=== PATIENT | female | born 1985 | race Caucasian/White ===

== ENCOUNTER 2023-10-18 15:19 | Emergency (ER) | payer OTHER, SELFPAY ==
--- NOTE | 2023-10-18 15:23 | ECG_ITS ---
Test Reason : CHEST PAIN Blood Pressure : / mmHG Vent. Rate : 115 BPM Atrial Rate : 115 BPM P-R Int : 136 ms QRS Dur : 080 ms QT Int : 328 ms P-R-T Axes : 048 070 011 degrees QTc Int : 453 ms Sinus tachycardia Cannot rule out Anterior infarct , age undetermined Abnormal ECG No previous ECGs available Referred By: Generic ED Physician Electronically Signed By:JOSE LUIS PERKINS MD
[2023-10-18 15:41] VITALS: BP 141/79; PULSE 111; RESP 20; TEMP 37.4; O2SAT 98; BMI 41.3
[2023-10-18 16:11] VITALS: BP 127/78; PULSE 108; RESP 16; TEMP 36.7; O2SAT 100
--- OUTSIDE RECORDS SUMMARY | 2023-10-18 16:12 | XMS_ITS | Continuity of Care Document ---
Author Organization [facility] ter Address [address] [place] [id number] Care Team Providers [employer] Manufacturing Technician Name Role Phone Yemi LÓPEZ, Thao Cast Primary Care Physician Unavail able Encounter [facility] Date(s): 06/13/21 - 06/13/[address] [id number] Attending Physician: Clint Díaz
--- NOTE | 2023-10-18 16:50 | ED.GENADULT ---
HPI - General Adult General Chief complaint: General Medical Stated complaint: tachy Time Seen by Provider: 10/18/23 16:02 Source: patient, RN notes reviewed and old records reviewed Mode of arrival: EMS Limitations: no limitations History of Present Illness HPI narrative: [age] year old female with past medical history significant for migraine headaches presents for evaluation of ?palpitations. ? 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 Patient reports that she has seen Cardiology about 15 years ago and again about last year and she has not had a formal diagnosis. Per her report it was felt that her symptoms are infrequent and did not warrant any intervention She had a Holter monitor in the past and an echocardiogram as recently as last year She states ?they keep telling me everything is normal. ? Patient states that during this episode today she had some chest discomfort and shortness of breath Patient reports that her mother and son both have similar symptoms occasionally Patient called the ambulance because her episode today lasted over an hour but when the ambulance arrived her symptoms have resolved. She denies any other significant medical history with the exception of migraines She has Mirena contraception No other complaints or concerns at this time Related Data Previous Rx's ?Medication ?Instructions ?Recorded prednisone 10 mg tablet 10 mg PO .COMPLEX #45 tabs 02/20/21 Allergies Allergy/AdvReac Type Severity Reaction Status Date / Time Sulfa (Sulfonamide Allergy Intermediate Unknown Verified 10/18/23 15:42 Antibiotics) SEASONAL ALLERGIES Allergy Unknown RUNNY Uncoded 10/18/23 15:42 NOSE/ITCHY EYES Review of Systems Constitutional: Constitutional: Denies body ache(s), Denies chills and Denies fever(s) ENT: Denies sore throat Cardiovascular: Cardiovascular: Reports chest pain, Reports rapid heart rate, Reports lightheadedness, Reports palpitations and Reports dyspnea Respiratory: Respiratory: Reports dyspnea Gastrointestinal: Gastrointestinal: Denies abdominal pain, Denies nausea and Denies vomiting Genitourinary: Genitourinary: Denies pelvic pain Musculoskeletal: Musculoskeletal: Denies back pain Integumentary/Breasts: Skin/Breast: Denies rash Endocrine: Endocrine: Reports palpitations REPLACED BY [facility] Social History Social History Alcohol intake: current Alcohol intake frequency: holidays/special occasions only Smoked in Last 30 Days: No Use of substances other than those prescribed or required for medical reasons: No Advance Directives: No Advance Directives Information Provided: No Physical Exam ED Vital Signs: Vital Signs - 24 hr 10/18/23 15:41 10/18/23 16:11 10/18/23 17:49 Temperature 99.4 F 98.0 F 98.0 F Pulse Rate 111 H 108 H 99 Respiratory Rate 20 16 16 Blood Pressure 141/79 H 127/78 123/83 Pulse Oximetry 98 100 100 Oxygen Delivery Method Room Air Room Air Room Air BMI result Body Mass Index 41.3 Const General: healthy appearing, comfortable, no acute distress, alert and awake Nutritional Appearance: well nourished Orientation/consciousness: patient oriented x3 HENMT Head: Yes normocephalic and Yes atraumatic Eyes Eyelids: Yes eyelids normal Conjunctivae: conjunctivae normal Sclerae: sclerae normal Corneas: corneas normal Pupils: Equal, round and reactive pupils present EOM: EOMs intact bilaterally Neck Neck: Yes full ROM Resp Effort & Inspection: normal respiratory effort, able to speak in complete sentences, no audible wheezes and not labored Auscultation: clear to auscultation bilaterally Cardio Rate: regular rate Rhythm: regular rhythm GI Inspection: No distended Palpation (GI): Soft to palpation, not firm, nontender, no guarding and not rigid Skin General skin exam: elasticity normal Neuro General: patient oriented x3 Cranial nerves: Yes Equal, round and reactive pupils present and Yes Bilaterally intact EOM present Cognition (Neuro): normal cognition Extrem Other: Moving all extremities well without any obvious deformities Course Reevaluation(s) Reevaluation #1: Patient's troponin increased slightly from 15.4-28.2. This was expected that the patient had an episode of SVT or other arrhythmia with a heart rate above 200 for almost an hour. There is no indication for acute ischemia or ACS. The patient will be discharged to follow-up with her PCP. Patient's TSH is within normal limits, D-dimer within normal limits. She has had stable vital signs while in the ER Time: 19:53 Medical Decision Making Medical Decision Making MDM Narrative: 38-year-old female presents for evaluation of palpitations. She reports that her heart rate was as high as 230-250. Her symptoms resolved prior to arrival to the ED. She is currently asymptomatic. History is most consistent with SVT. Plan for medical workup including TSH, troponin. The patient remains in the corporate technical recruiter. If she remains stable without arrhythmia she may be able to follow-up with cardiology as an outpatient Differential Diagnosis Differential Diagnoses: The differential diagnosis associated with the presentation includes Cardiac arrhythmia SVT Palpitations Anxiety AFib Lab Data MDM Lab Attestation statement: I reviewed the patient's lab results. No leukocytosis or anemia. Normal platelet count. Sodium potassium within normal limits. 10/18/23 16:45 10/18/23 16:45 Labs: Lab Results 10/18/23 10/18/23 Range/Units 16:45 19:09 WBC 7.4 (4.8-10.8) X10*3/uL RBC 5.11 (4.20-5.50) X10*6/uL Hgb 15.5 (12.0-16.0) g/dl Hct 44.4 (37.0-47.0) % MCV 86.9 (80.0-98.0) fL MCH 30.3 (27.0-33.0) pg MCHC 34.9 (31.0-35.0) g/dl RDW 11.9 (11.0-16.0) % Plt Count 234 (160-400) X10*3/uL MPV 11.4 (9.4-12.3) fL Immature Gran % (Auto) 0.3 (0.0-0.4) % Neut % (Auto) 64.4 (45-73) % Lymph % (Auto) 21.3 (20-40) % Blanco % (Auto) 10.5 (2-11) % Eos % (Auto) 2.7 (0-4) % Baso % (Auto) 0.8 (0-2) % Lymph # (Auto) 1.6 (1.2-4.9) X10*3/uL Blanco # (Auto) 0.8 (0.1-1.2) X10*3/uL Eos # (Auto) 0.2 (0.0-0.4) X10*3/uL Baso # (Auto) 0.1 (0.0-0.2) X10*3/uL Abs Immat Gran (auto) 0.02 (0.00-0.03) X10*3/uL Absolute Neuts (auto) 4.8 (2.0-8.3) x10*3/uL Absolute Nucleated RBC 0.000 (0.0-0.012) X10*3/uL Nucleated RBC % (auto) 0.0 (0.0-0.2) /100WBC PT 11.8 (11.1-13.3) SEC INR 1.0 (0.9-1.1) D-Dimer High Sensitivty 231 NG/ML Sodium 140 (135-145) mmol/L Potassium 3.7 (3.3-5.1) mmol/L Chloride 109 H (96-108) mmol/L Carbon Dioxide 23 (22-29) mmol/L Anion Gap 12 (12-20) BUN 21 H (9-16) mg/dL Creatinine 0.82 (0.5-1.4) mg/dL Estim Creat Clear Calc 122.0 Estimated GFR > 60 Random Glucose 124 H (60-115) mg/dL Calcium 9.5 (8.4-10.2) mg/dL Phosphorus 3.1 (2.7-4.5) mg/dL Magnesium 2.1 (1.6-2.6) mg/dL Total Bilirubin 0.3 (0.0-1.0) mg/dL AST 58 H (5-31) U/L ALT 73 H (0-31) U/L Alkaline Phosphatase 90 (39-117) U/L Troponin I High Sens 15.4 28.2 H D (<3.5-17.0) ng/L Total Protein 7.6 (6.5-8.0) g/dL Albumin 4.0 (3.5-5.0) g/dL Lipase 37 (8-78) U/L TSH 1.32 (0.32-4.0) uIU/mL Discharge Plan Discharge Clinical Impression: Arrhythmia Patient Disposition: Home, Self-Care Instructions: Supraventricular Tachycardia (ED), Valsalva Maneuver (ED) Additional Instructions: Your symptoms are likely related to supraventricular tachycardia or SVT Given that your symptoms resolved prior to emergency department, it is difficult to confirm the diagnosis Follow-up with your collection administrator as planned You may attempt the vagal maneuvers that we discussed earlier if this happens again Prescriptions: No Action prednisone 10 mg tablet 10 mg PO .COMPLEX Qty: 45 0RF Rx Instructions: 5 tabs daily for 3 days, 4 tabs daily for 3 days, 3 tabs daily for 3 days, 2 tabs daily for 3 days, 1 tab daily for 3 days Stand Alone Forms: Work/School Release Print Language: Bol[place]ian
[2023-10-18 16:55] LABS: Basophils Absolute Auto 0.1 X10*3/uL (0.0-0.2); Basophils Percent Auto 0.8 % (0-2); Eosinophils Absolute Auto 0.2 X10*3/uL (0.0-0.4); Eosinophils Percent Auto 2.7 % (0-4); Hematocrit 44.4 % (37.0-47.0); Hemoglobin 15.5 g/dl (12.0-16.0); Imm Gran Abs Auto 0.02 X10*3/uL (0.00-0.03); Imm Gran Pct Auto 0.3 % (0.0-0.4); Lymphocytes Absolute Auto 1.6 X10*3/uL (1.2-4.9); Lymphocytes Percent Auto 21.3 % (20-40); MANUAL DIFF FLAG NO; Mean Corpuscular HGB Conc 34.9 g/dl (31.0-35.0); Mean Corpuscular Hemoglobin 30.3 pg (27.0-33.0); Mean Corpuscular Volume 86.9 fL (80.0-98.0); Mean Platelet Volume 11.4 fL (9.4-12.3); Monocytes Absolute Auto 0.8 X10*3/uL (0.1-1.2); Monocytes Percent Auto 10.5 % (2-11); Neutrophils Absolute Auto 4.8 x10*3/uL (2.0-8.3); Neutrophils Percent Auto 64.4 % (45-73); Platelet Count 234 X10*3/uL (160-400); Red Blood Count 5.11 X10*6/uL (4.20-5.50); Red Cell Distribution Width 11.9 % (11.0-16.0); White Blood Count 7.4 X10*3/uL (4.8-10.8)
[2023-10-18 17:03] LABS: Prothrombin Time 11.8 SEC (11.1-13.3)
[2023-10-18 17:04] LABS: D Dimer High Sensitivity 231 NG/ML
[2023-10-18 17:09] LABS: Alanine Aminotransferase 73 U/L (0-31); Alkaline Phosphatase 90 U/L (39-117); Anion Gap 12 (12-20); Aspartate Amino Transferase 58 U/L (5-31); Bilirubin Total 0.3 mg/dL (0.0-1.0); Blood Urea Nitrogen 21 mg/dL (9-16); Calcium 9.5 mg/dL (8.4-10.2); Carbon Dioxide 23 mmol/L (22-29); Chloride 109 mmol/L (96-108); Estimated Glomerular Filt Rate > 60; Glucose Random 124 mg/dL (60-115); Lipase 37 U/L (8-78); Magnesium 2.1 mg/dL (1.6-2.6); Phosphorus 3.1 mg/dL (2.7-4.5); Potassium 3.7 mmol/L (3.3-5.1); Sodium 140 mmol/L (135-145); Total Protein 7.6 g/dL (6.5-8.0)
[2023-10-18 17:16] LABS: Troponin-I High Sensitivity 15.4 ng/L (<3.5-17.0)
[2023-10-18 17:30] LABS: TSH reflex Free T4 1.32 uIU/mL (0.32-4.0)
[2023-10-18 17:49] VITALS: BP 123/83; PULSE 99; RESP 16; TEMP 36.7; O2SAT 100
[2023-10-18 19:37] LABS: Troponin-I High Sensitivity 28.2 ng/L (<3.5-17.0)
[2023-10-18 20:13] VITALS: BP 123/77; PULSE 92; RESP 16; TEMP 36.8; O2SAT 100
== END 2023-10-18 20:18 | disposition home or self-care (01) ==
PROVIDERS: Physician Assistant; Emergency Provider Emergency Medicine Emergency Medical Services
DX: I49.9 Cardiac arrhythmia, unspecified (principal); R00.0 Tachycardia, unspecified; Z79.899 Other long term (current) drug therapy
CPT/HCPCS: 36415; 80053; 83690; 83735; 84100; 84443; 84484; 85025; 85379; 85610; 93005; 99283; 99284

== ENCOUNTER → 2023-10-18 15:23 | Outpatient (BNV) | payer OTHER, SELFPAY | PROVIDERS: Emergency Provider Emergency Medicine Emergency Medical Services; Visit Provider Internal Medicine Cardiovascular Disease | DX: R00.0 Tachycardia, unspecified (principal) | CPT/HCPCS: 93010 ==